=== PATIENT | female | born 1950 | race African-American/Black ===

== ENCOUNTER 2017-10-17 15:15 | Outpatient (RCR) | payer MEDICARE, MEDICAID | END 2017-10-19 | disposition home or self-care (01) | LOC: PTY 15:15 | DX: M17.10 Unilateral primary osteoarthritis, unspecified knee (principal); M19.012 Primary osteoarthritis, left shoulder; M19.011 Primary osteoarthritis, right shoulder | CPT/HCPCS: 97110; 97162; G8978; G8979 ==

== ENCOUNTER 2017-10-26 13:10 | Outpatient (RCR) | payer MEDICARE, MEDICAID | END 2017-11-19 | disposition home or self-care (01) | LOC: PTY 13:10 | DX: M17.10 Unilateral primary osteoarthritis, unspecified knee (principal); M19.019 Primary osteoarthritis, unspecified shoulder ==

== ENCOUNTER 2017-11-22 15:23 | Outpatient (RCR) | payer MEDICARE, MEDICAID | END 2017-12-19 | disposition home or self-care (01) | LOC: PTY 15:23 | DX: M17.9 Osteoarthritis of knee, unspecified (principal); M19.019 Primary osteoarthritis, unspecified shoulder | CPT/HCPCS: 97110; G8979; G8980 ==